=== PATIENT | male | born 1985 | race Caucasian/White ===

== ENCOUNTER 2017-06-02 13:12 | Inpatient (IN) | payer OTHER ==
[~2017-06-02] VITALS: Ht 182.9 cm; Wt 93.7 kg
[2017-06-02] MEDS ORDERED: SODIUM CHLORIDE 0.9% 1000ML 1,000 ML IV STA (13:34)
[2017-06-02 14:04] LABS: BASO % 0.2 %; BASO ABS # 0.02 K/uL (0-0.2); HEMATOCRIT 45.1 % (42-52); HEMOGLOBIN 16.9 g/dL (14.0-18.0); IG# 0.05 K/uL (0.00-0.02); LYMPH % 10.7 %; LYMPH ABS # 1.33 K/uL (1.2-3.4); MEAN CELL VOLUME 82.3 fL (80-100); MEAN CORPUSCULAR HEMOGLOBIN 30.8 pg (25-34); MEAN CORPUSCULAR HGB CONC 37.5 g/dl (32-36); MEAN PLATELET VOLUME 9.6 fL (7.4-10.4); MONO % 9.1 %; MONO ABS # 1.13 K/uL (0.11-0.59); NEUT % 79.6 %; NEUT ABS # 9.95 K/uL (1.4-6.5); PLATELET COUNT 222 K/uL (130-400); RED CELL DISTRIBUTION WIDTH CV 13.7 % (11.5-14.5); RED CELL DISTRIBUTION WIDTH SD 41.3 fL (36.4-46.3); WHITE BLOOD COUNT 12.48 K/uL (4.8-10.8)
[2017-06-02 14:27] LABS: ALBUMIN 3.4 gm/dl (3.4-5.0); CALCIUM 8.7 mg/dl (8.5-10.1); CREATININE 1.07 mg/dl (0.60-1.40); POTASSIUM 3.2 mmol/L (3.5-5.1)
[2017-06-02 14:30] LABS: TOTAL PROTEIN 9.1 gm/dl (6.4-8.2)
[2017-06-02 14:35] LABS: INFLUENZA B ANTIGEN POS for Influ B (NEG)
[2017-06-02] MEDS ORDERED: POTASSIUM CHLORIDE 10 MEQ TABCR PO STA (14:48)
--- NOTE | 2017-06-02 15:05 | DIAGNOSTIC IMAGING REPORT ---
CHEST 2 VIEWS ROUTINE CLINICAL HISTORY: 32 years-old Male presenting with cough. TECHNIQUE: PA and lateral views of the chest were obtained. COMPARISON: None. FINDINGS: Cardiomediastinal silhouette normal. 3 cm mass in the superior segment of the left lower lobe. Bandlike opacities at the left lung base. Small left pleural effusion. Right lung and pleural space clear. Osseous structures normal. Upper abdomen normal. IMPRESSION: 1. 3 cm mass in the superior segment of the left lower lobe. Other evaluation with contrast-enhanced chest CT recommended as this is suspicious and malignancy cannot be excluded. 2. Left basilar atelectasis or scarring with small left pleural effusion. The report will be called/faxed according to standard departmental protocol. Electronically signed by: John Bazan M.D. 06/02/2017 3:04 PM Dictated Date/Time: 06/02/2017 3:02 PM
[2017-06-02] MEDS ORDERED: OPTIRAY 320 IV PRN (15:45)
--- NOTE | 2017-06-02 16:04 | DIAGNOSTIC IMAGING REPORT ---
(CHEST FOR PE) ANGIO WITH CLINICAL HISTORY: 32 years-old Male presenting with ^Nodule seen on x-ray/radiologist recommended CT, positive flu test, coughing. TECHNIQUE: Multidetector CT angiography of the chest was performed after administration of intravenous contrast. 3-D volumetric and/or maximum intensity projection (MIP) images were subsequently reconstructed for review. IV contrast: 98 mL of Optiray 320. A dose lowering technique was used consistent with the principles of ALARA (as low as reasonably achievable). COMPARISON: None. CT DOSE (mGy.cm): The estimated cumulative dose is 400.91 mGy.cm. FINDINGS: Quality Control Assessor topogram: Unremarkable. Pulmonary vasculature: The study is suboptimal for the assessment of the pulmonary vascular tree secondary to timing of the contrast bolus and respiratory motion artifact. Allowing for limited image quality, no central filling defect to suggest pulmonary embolus. Main pulmonary artery is not enlarged. No flattening of the interventricular septum. No intracardiac filling defect. No reflux of contrast into the hepatic veins. Remaining chest: On soft tissue windows, normal thyroid and thoracic inlet. Several prominent though subcentimeter lymph nodes noted in the mediastinum measuring up to 7 mm in the short axis. Additionally, a few prominent hilar lymph nodes noted, left greater than right. Normal aorta. Normal heart size. No pericardial or pleural effusion. Upper abdomen normal. On lung windows, groundglass bubbly appearing 3.5 cm mass in the superior segment of the left lower lobe (series 4 image 172). Additionally, extensive paramediastinal consolidation in the heel basal left lower lobe as well as peribronchovascular and bandlike consolidation at the left lung base. Bronchial wall thickening noted diffusely. Subsegmental bronchial debris most prevalent in the lower lobes. Paraseptal emphysema at the lung apices. Minimal groundglass nodular opacities noted in the superior segment of the right lower lobe (series 4 images 168 and 160). Dependent consolidation in the posterior basal right lower lobe with extensive tree-in-bud opacities dependently. Central airways patent. On bone windows, normal osseous structures. IMPRESSION: 1. 3.5 cm subsolid mass superior segment of the left lower lobe. This morphology is most concerning for a neoplastic process though this would be unlikely in a patient of this age. Alternatively, a potential infectious etiology is possible, especially given the additional findings. This should be followed to complete resolution following treatment for pneumonia. 2. Extensive consolidation in the bilateral lower lobes with tree-in-bud and nodular consolidation most concerning for an atypical infectious etiology or aspiration. 3. Bronchial wall thickening with lower lobe predominant subsegmental bronchial debris. 4. Reactive mediastinal and bilateral hilar lymphadenopathy. Electronically signed by: John Bazan M.D. 06/02/2017 4:03 PM Dictated Date/Time: 06/02/2017 3:55 PM
[2017-06-02] MEDS ORDERED: PIPERACILLIN/TAZOBACTAM 4.5 GM/100ML D5W IV STA (16:37)
[2017-06-02] MEDS ORDERED: LEVAQUIN 750MG / 150ML D5W IV ONE (16:45)
[2017-06-02 17:26] VITALS: O2SAT 97; Ht 182.9 cm; Wt 93.7 kg
[2017-06-02] MEDS ORDERED: ONDANSETRON INJ 2 MG/ML 2 ML VIAL IV PRN (17:30)
[2017-06-02] MEDS ORDERED: ZOLPIDEM TARTRATE 5 MG TAB PO PRN ×2 (17:30)
[2017-06-02] MEDS ORDERED: PIPERACILL/TAZOBAC CONSULT ACTIVE PRN (17:30)
[2017-06-02] MEDS ORDERED: MAGNESIUM HYDROXIDE SUSP 30 ML UDC PO PRN (17:30)
[2017-06-02] MEDS ORDERED: ACETAMINOPHEN 325 MG TAB PO PRN (17:30)
[2017-06-02] MEDS ORDERED: ALUMINUM/MAGNESIUM/SIMETH (MAALOX MAX) 30 ML UDC PO PRN (17:30)
[2017-06-02] MEDS ORDERED: VANCOMYCIN CONSULT ACTIVE PRN (17:30)
--- NOTE | 2017-06-02 17:53 | EMERGENCY ROOM VISIT NOTE ---
History First contact with patient: 13:24 Chief Complaint: FLU LIKE SX Stated Complaint: FLU, SLEEPING ALL TIME, CANT EAT History of Present Illness The patient is a 32 year old male who presents to the Emergency Room with complaints of flulike symptoms. The patient states his symptoms started on Saturday feeling tired and achy. On Saturday he felt worse and also had a deep cough. The patient has not taken his temperature. The patient also admits to some head congestion but denies any sore throat or ear pain. The patient denies any urinary symptoms of frequency, urgency, dysuria hematuria. The patient states that he has been very tired he has not gotten out of bed for several days. He states he has had loose stools over the last 2 days. He states he has been drinking but has not had an appetite. Review of Systems 10 system review was performed and was negative unless stated otherwise history of present illness. Past Medical/Surgical History Medical Problems: (1) Lung mass No significant past medical history Social History Smoking Status: Current Every Day Smoker Marital Status: single Housing Status: lives with roommate Occupation Status: employed Current/Historical Medications No Active Prescriptions or Reported Meds Physical Exam Vital Signs Date Time Temp Pulse Resp B/P (MAP) Pulse Ox O2 Delivery O2 Flow Rate FiO2 06/02/17 17:26 97 Room Air 06/02/17 16:27 86 18 135/84 97 Room Air 06/02/17 15:07 36.7 78 18 131/68 95 Room Air 06/02/17 13:20 36.6 85 20 104/73 98 Room Air Physical Exam PHYSICAL EXAM: Vital Signs were reviewed: Temperature 36.6, blood pressure 104/ 73, pulse 85, respiratory rate 20 reviewed Nurse's notes and agree. Oxygen saturation is 98 % on room air which is normal . GENERAL: 18-year-old male appears in no acute distress. MENTAL STATUS: Alert, oriented, coherent. EARS: Canals clear. TMs good light reflex, no erythema or fluid level noted. NOSE: Nasal mucosa with moderate erythema engorgement. PHARYNX: No erythema, no edema noted. No exudate noted. Airway is adequate. NECK: Supple, non-tender. No lymphadenopathy noted. LUNGS: Diffuse rhonchi noted both lung pereira with only partial clearing with cough. CARDIAC: Regular rate and rhythm without murmur. ABDOMEN: Positive bowel sounds all 4 quadrants. Soft, nontender to palpation without organomegaly or masses. SKIN: No rashes noted. Medical Decision & Procedures ER Provider Diagnostic Interpretation: CHEST 2 VIEWS ROUTINE CLINICAL HISTORY: 32 years-old Male presenting with cough. TECHNIQUE: PA and lateral views of the chest were obtained. COMPARISON: None. FINDINGS: Cardiomediastinal silhouette normal. 3 cm mass in the superior segment of the left lower lobe. Bandlike opacities at the left lung base. Small left pleural effusion. Right lung and pleural space clear. Osseous structures normal. Upper abdomen normal. IMPRESSION: 1. 3 cm mass in the superior segment of the left lower lobe. Other evaluation with contrast-enhanced chest CT recommended as this is suspicious and malignancy cannot be excluded. 2. Left basilar atelectasis or scarring with small left pleural effusion. The report will be called/faxed according to standard departmental protocol. Electronically signed by: John Bazan M.D. 06/02/2017 3:04 PM (CHEST FOR PE) ANGIO WITH CLINICAL HISTORY: 32 years-old Male presenting with ^Nodule seen on x-ray/radiologist recommended CT, positive flu test, coughing. TECHNIQUE: Multidetector CT angiography of the chest was performed after administration of intravenous contrast. 3-D volumetric and/or maximum intensity projection (MIP) images were subsequently reconstructed for review. IV contrast: 98 mL of Optiray 320. A dose lowering technique was used consistent with the principles of ALARA (as low as reasonably achievable). COMPARISON: None. CT DOSE (mGy.cm): The estimated cumulative dose is 400.91 mGy.cm. FINDINGS: Network Technology Instructor topogram: Unremarkable. Pulmonary vasculature: The study is suboptimal for the assessment of the pulmonary vascular tree secondary to timing of the contrast bolus and respiratory motion artifact. Allowing for limited image quality, no central filling defect to suggest pulmonary embolus. Main pulmonary artery is not enlarged. No flattening of the interventricular septum. No intracardiac filling defect. No reflux of contrast into the hepatic veins. Remaining chest: On soft tissue windows, normal thyroid and thoracic inlet. Several prominent though subcentimeter lymph nodes noted in the mediastinum measuring up to 7 mm in the short axis. Additionally, a few prominent hilar lymph nodes noted, left greater than right. Normal aorta. Normal heart size. No pericardial or pleural effusion. Upper abdomen normal. On lung windows, groundglass bubbly appearing 3.5 cm mass in the superior segment of the left lower lobe (series 4 image 172). Additionally, extensive paramediastinal consolidation in the heel basal left lower lobe as well as peribronchovascular and bandlike consolidation at the left lung base. Bronchial wall thickening noted diffusely. Subsegmental bronchial debris most prevalent in the lower lobes. Paraseptal emphysema at the lung apices. Minimal groundglass nodular opacities noted in the superior segment of the right lower lobe (series 4 images 168 and 160). Dependent consolidation in the posterior basal right lower lobe with extensive tree-in-bud opacities dependently. Central airways patent. On bone windows, normal osseous structures. IMPRESSION: 1. 3.5 cm subsolid mass superior segment of the left lower lobe. This morphology is most concerning for a neoplastic process though this would be unlikely in a patient of this age. Alternatively, a potential infectious etiology is possible, especially given the additional findings. This should be followed to complete resolution following treatment for pneumonia. 2. Extensive consolidation in the bilateral lower lobes with tree-in-bud and nodular consolidation most concerning for an atypical infectious etiology or aspiration. 3. Bronchial wall thickening with lower lobe predominant subsegmental bronchial debris. 4. Reactive mediastinal and bilateral hilar lymphadenopathy. Electronically signed by: John Bazan M.D. 06/02/2017 4:03 PM Dictated Date/Time: 06/02/2017 3:55 PM Laboratory Results 06/02/17 13:59 Red Blood Count 5.48, Mean Corpuscular Volume 82.3, Mean Corpuscular Hemoglobin 30.8, Mean Corpuscular Hemoglobin Concent 37.5, Mean Platelet Volume 9.6, Neutrophils (%) (Auto) 79.6, Lymphocytes (%) (Auto) 10.7, Monocytes (%) (Auto) 9.1, Eosinophils (%) (Auto) 0.0, Basophils (%) (Auto) 0.2, Neutrophils # (Auto) 9.95, Lymphocytes # (Auto) 1.33, Monocytes # (Auto) 1.13, Eosinophils # (Auto) 0.00, Basophils # (Auto) 0.02 06/02/17 13:59 Test 06/02/17 13:59 06/02/17 14:00 06/02/17 16:53 06/02/17 17:30 White Blood Count 12.48 K/uL (4.8-10.8) Red Blood Count 5.48 M/uL (4.7-6.1) Hemoglobin 16.9 g/dL (14.0-18.0) Hematocrit 45.1 % (42-52) Mean Corpuscular Volume 82.3 fL (80-100) Mean Corpuscular Hemoglobin 30.8 pg (25-34) Mean Corpuscular Hemoglobin Concent 37.5 g/dl (32-36) Platelet Count 222 K/uL (130-400) Mean Platelet Volume 9.6 fL (7.4-10.4) Neutrophils (%) (Auto) 79.6 % Lymphocytes (%) (Auto) 10.7 % Monocytes (%) (Auto) 9.1 % Eosinophils (%) (Auto) 0.0 % Basophils (%) (Auto) 0.2 % Neutrophils # (Auto) 9.95 K/uL (1.4-6.5) Lymphocytes # (Auto) 1.33 K/uL (1.2-3.4) Monocytes # (Auto) 1.13 K/uL (0.11-0.59) Eosinophils # (Auto) 0.00 K/uL (0-0.5) Basophils # (Auto) 0.02 K/uL (0-0.2) RDW Standard Deviation 41.3 fL (36.4-46.3) RDW Coefficient of Variation 13.7 % (11.5-14.5) Immature Granulocyte % (Auto) 0.4 % Immature Granulocyte # (Auto) 0.05 K/uL (0.00-0.02) Anion Gap 13.0 mmol/L (3-11) Est Creatinine Clear Calc Drug Dose 115.6 ml/min Estimated GFR () 104.4 Estimated GFR (Non- 90.1 BUN/Creatinine Ratio 12.6 (10-20) Calcium Level 8.7 mg/dl (8.5-10.1) Total Bilirubin 0.5 mg/dl (0.2-1) Direct Bilirubin 0.2 mg/dl (0-0.2) Aspartate Amino Transf (AST/SGOT) 24 U/L (15-37) Alanine Aminotransferase (ALT/SGPT) 27 U/L (12-78) Alkaline Phosphatase 127 U/L (45-117) Total Protein 9.1 gm/dl (6.4-8.2) Albumin 3.4 gm/dl (3.4-5.0) Lipase 256 U/L (73-393) Influenza Type A Antigen Neg for Influ A (NEG) Influenza Type B Antigen POS for Influ B (NEG) Bedside Lactic Acid Venous 0.87 mmol/L (0.90-1.70) Medications Administered Medications (Trade) Dose Ordered Sig/Alcides Route Start Time Stop Time Status Last Admin Dose Admin Sodium Chloride 1,000 ml @ 999 mls/hr Q1H1M STAT IV 06/02/17 13:34 06/02/17 14:34 DC 06/02/17 14:00 999 MLS/HR Potassium Chloride (Klor-Con M10) 10 meq NOW STAT PO 06/02/17 14:48 06/02/17 14:49 DC 06/02/17 15:06 10 MEQ Piperacillin Sod/ Tazobactam Sod (Zosyn Iv) 4.5 gm NOW STAT IV 06/02/17 16:37 06/02/17 16:39 DC 06/02/17 16:50 4.5 GM Levofloxacin (Levaquin / D5W) 750 mg NOW ONCE IV 06/02/17 16:45 06/02/17 16:46 DC 06/02/17 17:06 750 MG ED Course The patient was evaluated. Patient's EMR medication list were reviewed. IV access was obtained. The patient was given 1 L normal saline wide open. CBC and differential, renal profile was ordered. Observe reviewed. The patient's white count was elevated at 12,000, potassium was slightly low at 3.2 otherwise labs are unremarkable. Rapid influenza was negative for influenza A but positive for influenza B.. Chest x-ray was ordered interpreted by the radiologist and myself as above with abnormal finding in the left lower lobe. A CT was recommended. A CT with contrast of the chest was ordered.. The patient was given K Dur 10 mEq while in the ER. CT of the chest was interpreted by the radiologist as above with an extensive infectious type process noted in both lung pereira. Please see above report for details. The patient's case was discussed with Dr. Frazier who individually evaluated the patient and agree with treatment plan. Blood cultures were ordered prior to giving the patient antibiotics. The patient was given Zosyn 4.5 g IV and Levaquin 750 mg IV. Hospitalist was consulted for admission. The patient was placed in negative pressure isolation room. Medical Decision Differential diagnosis include influenza, viral URI, pneumonia. Due to the patient's extensive disease process within the lungs the patient will be admitted for further evaluation and treatment. [place] Drug Monitoring [place] Search Results: patient reviewed within database Medication Reconcilliation Current Medication List: was personally reviewed by me Blood Pressure Screening Patient's blood pressure: Normal blood pressure Impression Primary Impression: Pneumonia Additional Impressions: Influenza B Hypokalemia Departure Information Dispostion Being Evaluated By Hospitalist Condition GOOD Prescriptions No Active Prescriptions or Reported Meds Referrals No Doctor, Assigned (PCP) Patient Instructions My [facility] Problem Qualifiers Primary Impression: Pneumonia Pneumonia type: due to unspecified organism Laterality: bilateral Lung location: lower lobe of lung Qualified Codes: J18.1 - Lobar pneumonia, unspecified organism
--- NOTE | 2017-06-02 18:27 | History and Physical ---
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 5 days ago he developed some cough, chills and fever. His cough was productive greenish sputum. Yesterday he developed multiple times of diarrhea no blood in stool no nausea or vomiting. His mom came to check on him and he looked really sick so she brought him to the hospital. In the hospital he was found to test positive for influenza B. A CT scan was done to his chest as his chest x-ray was abnormal. Chest CT showed 3.5 cm mass in the left lower lobe close to the supraspinal area. Also showed multiple bibasal lung nodules. Patient denies any drug abuse, he is not some bills in his 20s but has not been that long time. He never traveled outside [facility] but he went to [facility], [place] and [facility]. No history of hiking or hunting but he went camping almost every summer in high school. Past Medical/Surgical History Medical Problems: (1) Lung mass Social History Smoking Status: Current Every Day Smoker Marital Status: single Occupational Status: employed Allergies Coded Allergies: No Known Allergies (Unverified , 06/02/17) Home Medications No Active Prescriptions or Reported Meds Review of Systems Review of system Constitutional: Positive for fever/chills/weakness and fatigue Eyes: no blurring of vision / no eye pain / no discharge / no redness ENT: no hearing loss / no epistaxis /no swallowing problems Respiratory: Shortness of breath and productive cough with greenish mucus Cardiovascular: no Chest pain / no lower extremity edema / no palpitation Abdomen: no pain / no nausea / no vomiting / no constipation Musculoskeletal: no joint pain / no muscle pain / no joint swelling Genitourinary: no dysuria / no incontinence / no urinary retention Neurologic: no focal weakness / no numbness/tingling / no ataxia Psychiatric: no depression symptoms / no anxiety / no insomnia Endocrine: no excessive thirst / no excessive urination Hematologic: no abnormal bleeding / no bruising / no LN swelling Skin: No rash / no pallor Physical Exam Vital Signs Date Time Temp Pulse Resp B/P (MAP) Pulse Ox O2 Delivery O2 Flow Rate FiO2 06/02/17 17:26 97 Room Air 06/02/17 16:27 86 18 135/84 97 Room Air 06/02/17 15:07 36.7 78 18 131/68 95 Room Air 06/02/17 13:20 36.6 85 20 104/73 98 Room Air Physical examination General patient appears to be in mild distress HEENT: Atraumatic , normocephalic /no jaundice /no pallor /anicteric /no dry mucous membrane /normal external ear inspection Neck: Supple /no swelling /central trach Heart: S1/S2 normal/regular rate and rhythm/no gallop /no rub /no murmur Lungs: Decreased air entry bilaterally, scattered rhonchi Abdomen: Soft/nontender/no guarding/no rebound/no organomegaly/no pulsatile mass Musculoskeletal: No swelling/no edema/no tenderness/normal range of motion Neuro exam: Awake alert oriented 3/cranial nerves II through XII appear to be intact/sensation intact/moves all extremities/no abnormal movements Psychiatric evaluation: No depressed mood/normal affect Skin: No rash on exposed skin area/no erythema Extremity: Normal pulse/no pitting edema/no clubbing or cyanosis Endocrine/lymphatic: No obvious lymphadenopathy /no lymphedema Diagnostics Laboratory Results Results Past 24 Hours Test 06/02/17 13:59 06/02/17 14:00 06/02/17 16:53 06/02/17 17:30 Range/Units White Blood Count 12.48 4.8-10.8 K/uL Red Blood Count 5.48 4.7-6.1 M/uL Hemoglobin 16.9 14.0-18.0 g/dL Hematocrit 45.1 42-52 % Mean Corpuscular Volume 82.3 80-100 fL Mean Corpuscular Hemoglobin 30.8 25-34 pg Mean Corpuscular Hemoglobin Concent 37.5 32-36 g/dl Platelet Count 222 130-400 K/uL Mean Platelet Volume 9.6 7.4-10.4 fL Neutrophils (%) (Auto) 79.6 % Lymphocytes (%) (Auto) 10.7 % Monocytes (%) (Auto) 9.1 % Eosinophils (%) (Auto) 0.0 % Basophils (%) (Auto) 0.2 % Neutrophils # (Auto) 9.95 1.4-6.5 K/uL Lymphocytes # (Auto) 1.33 1.2-3.4 K/uL Monocytes # (Auto) 1.13 0.11-0.59 K/uL Eosinophils # (Auto) 0.00 0-0.5 K/uL Basophils # (Auto) 0.02 0-0.2 K/uL RDW Standard Deviation 41.3 36.4-46.3 fL RDW Coefficient of Variation 13.7 11.5-14.5 % Immature Granulocyte % (Auto) 0.4 % Immature Granulocyte # (Auto) 0.05 0.00-0.02 K/uL Sodium Level 130 136-145 mmol/L Potassium Level 3.2 3.5-5.1 mmol/L Chloride Level 97 98-107 mmol/L Carbon Dioxide Level 20 21-32 mmol/L Anion Gap 13.0 3-11 mmol/L Blood Urea Nitrogen 14 7-18 mg/dl Creatinine 1.07 0.60-1.40 mg/dl Est Creatinine Clear Calc Drug Dose 115.6 ml/min Estimated GFR () 104.4 Estimated GFR (Non- 90.1 BUN/Creatinine Ratio 12.6 10-20 Random Glucose 105 70-99 mg/dl Calcium Level 8.7 8.5-10.1 mg/dl Total Bilirubin 0.5 0.2-1 mg/dl Direct Bilirubin 0.2 0-0.2 mg/dl Aspartate Amino Transf (AST/SGOT) 24 15-37 U/L Alanine Aminotransferase (ALT/SGPT) 27 12-78 U/L Alkaline Phosphatase 127 45-117 U/L Total Protein 9.1 6.4-8.2 gm/dl Albumin 3.4 3.4-5.0 gm/dl Lipase 256 73-393 U/L Influenza Type A Antigen Neg for Influ A NEG Influenza Type B Antigen POS for Influ B NEG Bedside Lactic Acid Venous 0.87 0.90-1.70 mmol/L Microbiology Results 06/02/17 Fungal Smear, Ordered Pending 06/02/17 Fungal Culture, Ordered Pending 06/02/17 Blood Culture, Received Pending 06/02/17 Blood Culture, Received Pending Diagnostic Radiology CT chest: IMPRESSION: 1. 3.5 cm subsolid mass superior segment of the left lower lobe. This morphology is most concerning for a neoplastic process though this would be unlikely in a patient of this age. Alternatively, a potential infectious etiology is possible, especially given the additional findings. This should be followed to complete resolution following treatment for pneumonia. 2. Extensive consolidation in the bilateral lower lobes with tree-in-bud and nodular consolidation most concerning for an atypical infectious etiology or aspiration. 3. Bronchial wall thickening with lower lobe predominant subsegmental bronchial debris. 4. Reactive mediastinal and bilateral hilar lymphadenopathy Impression Assessment and Plan 32-year-old man smoker with history of frequent camping, travel to [facility], [facility] and [place] presented to the hospital with shortness of breath/productive cough greenish mucus, tested positive for influenza B and was found to have 3.5 cm lung mass and left lower lobe paraspinal area and multiple small lung nodules especially bibasal areas. Assessment Influenza B virus upper respiratory tract infection 3.5 cm lung mass with multiple lung nodules Tobacco abuse Elevated total protein level likely dehydration Mild hypokalemia Plan Admit patient to telemetry Oxygen supplement as per protocol Blood culture/sputum culture Although tuberculosis is low in the last but as a precaution will do AFB and sputum and blood cultures, airborne isolation Ordered fungitel, B galactomannan and fungal sputum Consult pharmaceutical engineer for possible bronchoscopy Consult cardiothoracic surgeon Dr. Rodriguez for possible biopsy Consult infectious diseases Dr. Balderas Urine legionella antigen Initiate broad-spectrum antibiotics; Zosyn/Vanco/azithromycin/Tamiflu Start patient on lactobacillus to prevent C. difficile IV fluid hydration Repeat CMP in the morning with focus on total protein, if stays elevated after dehydration it can be concerning for HIV or other pathologic malignancy HIV vertebral consent was obtained, patient understands that he should call or come in person in 2 weeks to get HIV results, patient understands that he will not be called with the results due to confidentiality, patient acknowledged that he understands and will follow-up on the results under his own responsibilities 2D echo rule out infective endocarditis Monitor labs in a.m. Bronchodilators Monitor oxygen saturation DVT prophylaxis/heparin subcutaneous Advanced Directives Existing Living Will: No Existing Power of Medical Records Tech: No Resuscitation Status VTE Prophylaxis Will order VTE Prophylaxis: Yes
[2017-06-02 19:00] VITALS: BP 159/81; PULSE 85; TEMP 37; O2SAT 95
[2017-06-02 19:31] VITALS: O2SAT 95
[2017-06-02] MEDS ORDERED: POLYETHYLENE (MIRALAX) 17 GM PACK PO PRN (19:45)
[2017-06-02] MEDS ORDERED: POTASSIUM CHLORIDE PWD 20 MEQ PACK PO ONE (19:45)
[2017-06-02] MEDS ORDERED: SODIUM CHLORIDE 0.9% 1000ML 1,000 ML IV SCH (19:45)
[2017-06-02] MEDS ORDERED: NURSING VERBAL MED ORDER ONE (20:15)
[2017-06-02] MEDS: ONDANSETRON 4MG OD TAB SL SCH (20:17)
[2017-06-02] MEDS: OSELTAMIVIR PHOSPHATE 75 MG CAP PO SCH (20:17)
[2017-06-02] MEDS: NSS + 20MEQ KCL 1000ML 1,000 ML IV SCH (20:18)
[2017-06-02] MEDS: LACTOBACILLUS ACIDOPHILUS (FLORANEX) TAB PO SCH (20:20)
[2017-06-02] MEDS ORDERED: VANCOMYCIN IV 2,500 MG in SODIUM CHLORIDE 0.9% 500ML 500 ML IV ONE (20:30)
[2017-06-02 20:40] LABS: INR 1.2 (0.9-1.1); PTT PATIENT 32.9 SECONDS (21.0-31.0)
--- NOTE | 2017-06-02 20:49 | Pharmacy Progress Note ---
Pharmacy Abx Initial Consult Date of Service Jun 02, 2017. Pharmacy Dosing Scope Date of Consult: 06/02/17 Consultation requested by: Dr. Wei Pharmacy is consulted to initiate Vancomycin/Zosyn IV dosing therapy, order appropriate labs and adjust drug dose/frequency. Subjective The patient is a 32 year old male admitted on Jun 02, 2017 at 17:47. Objective Height (Feet): 6 Height (Inches): 0.00 Weight (Kilograms): 93.700 Vital Signs (Past 12Hrs) Vital Signs Past 12 Hours Date Time Temp Pulse Resp B/P (MAP) Pulse Ox O2 Delivery O2 Flow Rate FiO2 06/02/17 19:31 95 Room Air 06/02/17 19:00 37.0 85 20 159/81 (107) 95 Room Air 06/02/17 18:30 87 18 113/55 97 06/02/17 17:26 97 Room Air 06/02/17 16:27 86 18 135/84 97 Room Air 06/02/17 15:07 36.7 78 18 131/68 95 Room Air 06/02/17 13:20 36.6 85 20 104/73 98 Room Air Lab Results (24Hrs) Laboratory Tests (24 Hours) Test 06/02/17 13:59 06/02/17 14:50 White Blood Count 12.48 K/uL (4.8-10.8) H Red Blood Count 5.48 M/uL (4.7-6.1) Hemoglobin 16.9 g/dL (14.0-18.0) Hematocrit 45.1 % (42-52) Mean Corpuscular Volume 82.3 fL (80-100) Mean Corpuscular Hemoglobin 30.8 pg (25-34) Mean Corpuscular Hemoglobin Concent 37.5 g/dl (32-36) H Platelet Count 222 K/uL (130-400) Mean Platelet Volume 9.6 fL (7.4-10.4) Neutrophils (%) (Auto) 79.6 % Lymphocytes (%) (Auto) 10.7 % Monocytes (%) (Auto) 9.1 % Eosinophils (%) (Auto) 0.0 % Basophils (%) (Auto) 0.2 % Neutrophils # (Auto) 9.95 K/uL (1.4-6.5) H Lymphocytes # (Auto) 1.33 K/uL (1.2-3.4) Monocytes # (Auto) 1.13 K/uL (0.11-0.59) H Eosinophils # (Auto) 0.00 K/uL (0-0.5) Basophils # (Auto) 0.02 K/uL (0-0.2) C-Reactive Protein 21.50 mg/dl (0-0.29) H Erythrocyte Sedimentation Rate > 90 mm/hr (0-14) H Procalcitonin 0.32 ng/ml (0-0.5) Micro Results Date/Time Source Procedure Growth Status 06/02/17 20:22 Blood Blood Culture Pending Received 06/02/17 20:19 Blood Blood Culture Pending Received 06/02/17 19:09 Blood Fungal Smear Pending Received 06/02/17 19:09 Blood Fungal Culture Pending Received 06/02/17 16:51 Blood Blood Culture Pending Received 06/02/17 16:49 Blood Blood Culture Pending Received Assessment & Plan Assessment 32 year old male with 3.5 cm Pulmonary mass and possible atypical pulmonary infectious process. Patient also positive for Influenza B Plan Vancomycin/Zosyn for possible atypical pulmonary infectious process Vancomycin IV * Loading dose: Vancomycin 2750 mg (27 mg/kg) * Maintenance dose: 1750 mg IV (18.7 mg/kg) every 10 hours * Goal trough level for pulmonary infection: 15 to 20 mcg/mL * Trough level ordered for 06/04/17 before the 1400 hours dose Piperacillin/tazobactam * 4.5 g bolus administered over 30 minutes, then 3.375 g IV extended infusion every 8 hours for CrCl greater than 20 mL/min Pharmacy will continue to follow and will adjust dose/frequency as necessary. Thank you.
[2017-06-02] MEDS: ENOXAPARIN 40 MG/0.4 ML SYR SQ SCH (20:55)
[2017-06-02 22:45] VITALS: BP 143/84; PULSE 81; TEMP 37.5; O2SAT 95
[2017-06-02] MEDS: PIPERACILL/TAZOBAC IV 3.375 GM in DEXTROSE 5% 100ML 100 ML IV SCH (23:42)
[2017-06-03 00:26] VITALS: BP 123/74; TEMP 37.4
[2017-06-03 01:28] VITALS: TEMP 37.3
[2017-06-03] MEDS: ONDANSETRON 4MG OD TAB SL SCH ×5 (02:05→20:00)
[2017-06-03 06:43] LABS: BASO % 0.2 %; BASO ABS # 0.02 K/uL (0-0.2); EOS % 0.1 %; EOS ABS # 0.01 K/uL (0-0.5); HEMATOCRIT 43.2 % (42-52); HEMOGLOBIN 15.6 g/dL (14.0-18.0); IG# 0.02 K/uL (0.00-0.02); LYMPH % 15.7 %; LYMPH ABS # 1.39 K/uL (1.2-3.4); MEAN CORPUSCULAR HEMOGLOBIN 29.6 pg (25-34); MEAN CORPUSCULAR HGB CONC 36.1 g/dl (32-36); MEAN PLATELET VOLUME 9.6 fL (7.4-10.4); MONO % 5.5 %; MONO ABS # 0.49 K/uL (0.11-0.59); NEUT % 78.3 %; NEUT ABS # 6.94 K/uL (1.4-6.5); PLATELET COUNT 200 K/uL (130-400); RED CELL DISTRIBUTION WIDTH CV 13.8 % (11.5-14.5); RED CELL DISTRIBUTION WIDTH SD 41.3 fL (36.4-46.3); WHITE BLOOD COUNT 8.87 K/uL (4.8-10.8)
[2017-06-03 07:11] LABS: ALBUMIN 2.9 gm/dl (3.4-5.0); CALCIUM 8.6 mg/dl (8.5-10.1); CREATININE 0.9 mg/dl (0.60-1.40); POTASSIUM 3.2 mmol/L (3.5-5.1)
[2017-06-03 07:15] LABS: TOTAL PROTEIN 7.9 gm/dl (6.4-8.2)
[2017-06-03 07:34] VITALS: BP 127/78; PULSE 85; TEMP 36.6; O2SAT 94
[2017-06-03 07:48] LABS: HEMOGLOBIN A1C 5.8 % (4.5-5.6)
[2017-06-03] MEDS: VANCOMYCIN IV 1,750 MG in SODIUM CHLORIDE 0.9% 500ML 500 ML IV SCH ×2 (08:22→18:30)
[2017-06-03] MEDS: PIPERACILL/TAZOBAC IV 3.375 GM in DEXTROSE 5% 100ML 100 ML IV SCH ×3 (08:22→23:51)
[2017-06-03] MEDS: NSS + 20MEQ KCL 1000ML 1,000 ML IV SCH ×2 (08:23→22:05)
[2017-06-03] MEDS: LACTOBACILLUS ACIDOPHILUS (FLORANEX) TAB PO SCH ×4 (08:23→18:22)
[2017-06-03] MEDS: OSELTAMIVIR PHOSPHATE 75 MG CAP PO SCH ×3 (08:24→20:35)
[2017-06-03] MEDS: AZITHROMYCIN 250 MG TAB PO SCH ×2 (08:24→10:06)
[2017-06-03] MEDS ORDERED: FAMOTIDINE IV INJ 20 MG in SYRINGE 3 ML IV SCH (09:00)
[2017-06-03] MEDS ORDERED: FAMOTIDINE IV INJ 20 MG in DEXTROSE 5% 100ML 100 ML IV SCH (09:00)
--- NOTE | 2017-06-03 09:33 | Hospitalist Progress Note ---
Hospitalist Progress Note Date of Service Jun 03, 2017. (Bianca Galindo PA-C) Subjective Pt evaluation today including: conversation w/ patient, conversation w/ family , physical exam, chart review, lab review, review of studies Pain: None PO Intake: Good Voiding: no voiding problems The patient was seen and examined this morning. Pt reports doing much better today compared to yesterday. The patient denies any shortness of breath and has a very minimal cough with some white sputum production. He denies being feverish or having chills overnight. Pt feels he is tolerating oral intake and fluids without difficulty. This is the first that he has eaten in the past 5 days. + BM. No issues with urination. Discussion was held with the patient and his mother, who is present at bedside. Patient was encouraged to stop smoking, which he has completely agreeable to at this point. We reviewed CT imaging at bedside, and patient was shown areas of early emphysema, along with the lung mass with lymphadenopathy. The patient admits to smoking marijuana as well. He currently lives with his brother who also smokes tobacco/cigarettes inside the house. Additional Comments: Constitutional: No fever, sweats or chills Eyes: No diplopia, no worsening or blurred vision ENT: normal hearing, no trouble swallowing Respiratory: See HPI Cardiovascular: No chest pain, tightness or palpitations Abdomen: No pain, nausea, vomiting, diarrhea or constipation Musculoskeletal: No joint pain, calf pain, swelling Neurologic: No weakness, numbness/tingling, or balance problems Psychiatric: No anxiety or depression Skin: No rash or itch (Bianca Galindo PA-C) Objective Vital Signs Date Time Temp Pulse Resp B/P (MAP) Pulse Ox O2 Delivery O2 Flow Rate FiO2 06/03/17 07:34 36.6 85 17 127/78 (94) 94 Room Air 06/03/17 01:28 37.3 06/03/17 00:26 37.4 123/74 (90) 06/02/17 23:45 Room Air 06/02/17 22:45 37.5 81 18 143/84 (103) 95 Room Air 06/02/17 19:31 95 Room Air 06/02/17 19:00 37.0 85 20 159/81 (107) 95 Room Air 06/02/17 18:30 87 18 113/55 97 06/02/17 17:26 97 Room Air 06/02/17 16:27 86 18 135/84 97 Room Air 06/02/17 15:07 36.7 78 18 131/68 95 Room Air 06/02/17 13:20 36.6 85 20 104/73 98 Room Air (Bianca Galindo PA-C) Physical Exam Notes: General: awake, alert, no apparent distress, + slightly anxious Head: Normocephalic, atraumatic ENT: PERRL, EOMI, no pharyngeal exudate, mucous membranes moist Chest: On room air, faintly coarse breath sounds throughout, no wheeze or rales Cardiac: Regular rate and rhythm, no murmur, no JVD, normal peripheral pulses, good capillary refill Abdominal: NABS x 4 quadrants, soft, nontender to palpation, no rebound, guarding or tenderness Extremities: Normal inspection, no peripheral edema or erythema, calfs nontender to palpation Psych: Normal mood and affect Neuro: AAO x 3, strength intact bilaterally and related 5/5, no motor deficits, speech is clear, no peripheral sensory deficits (Bianca Galindo, JOAQUIN-C) Laboratory Results Last 24 Hours Test 06/02/17 13:59 06/02/17 14:00 06/02/17 14:50 06/02/17 16:53 White Blood Count 12.48 K/uL Red Blood Count 5.48 M/uL Hemoglobin 16.9 g/dL Hematocrit 45.1 % Mean Corpuscular Volume 82.3 fL Mean Corpuscular Hemoglobin 30.8 pg Mean Corpuscular Hemoglobin Concent 37.5 g/dl Platelet Count 222 K/uL Mean Platelet Volume 9.6 fL Neutrophils (%) (Auto) 79.6 % Lymphocytes (%) (Auto) 10.7 % Monocytes (%) (Auto) 9.1 % Eosinophils (%) (Auto) 0.0 % Basophils (%) (Auto) 0.2 % Neutrophils # (Auto) 9.95 K/uL Lymphocytes # (Auto) 1.33 K/uL Monocytes # (Auto) 1.13 K/uL Eosinophils # (Auto) 0.00 K/uL Basophils # (Auto) 0.02 K/uL RDW Standard Deviation 41.3 fL RDW Coefficient of Variation 13.7 % Immature Granulocyte % (Auto) 0.4 % Immature Granulocyte # (Auto) 0.05 K/uL Sodium Level 130 mmol/L Potassium Level 3.2 mmol/L Chloride Level 97 mmol/L Carbon Dioxide Level 20 mmol/L Anion Gap 13.0 mmol/L Blood Urea Nitrogen 14 mg/dl Creatinine 1.07 mg/dl Est Creatinine Clear Calc Drug Dose 115.6 ml/min Estimated GFR () 104.4 Estimated GFR (Non- 90.1 BUN/Creatinine Ratio 12.6 Random Glucose 105 mg/dl Calcium Level 8.7 mg/dl Total Bilirubin 0.5 mg/dl Direct Bilirubin 0.2 mg/dl Aspartate Amino Transf (AST/SGOT) 24 U/L Alanine Aminotransferase (ALT/SGPT) 27 U/L Alkaline Phosphatase 127 U/L Total Protein 9.1 gm/dl Albumin 3.4 gm/dl Lipase 256 U/L Influenza Type A Antigen Neg for Influ A Influenza Type B Antigen POS for Influ B Erythrocyte Sedimentation Rate > 90 mm/hr C-Reactive Protein 21.50 mg/dl Procalcitonin 0.32 ng/ml Bedside Lactic Acid Venous 0.87 mmol/L Test 06/02/17 19:09 06/02/17 20:19 06/03/17 03:20 06/03/17 03:50 HIV (1&2) Ab and P24 Ag, 4th Gener NEG Prothrombin Time 12.2 SECONDS Prothromb Time International Ratio 1.2 Activated Partial Thromboplast Time 32.9 SECONDS Partial Thromboplastin Ratio 1.3 Stool Occult Blood NEGATIVE Test 06/03/17 06:30 White Blood Count 8.87 K/uL Red Blood Count 5.27 M/uL Hemoglobin 15.6 g/dL Hematocrit 43.2 % Mean Corpuscular Volume 82.0 fL Mean Corpuscular Hemoglobin 29.6 pg Mean Corpuscular Hemoglobin Concent 36.1 g/dl Platelet Count 200 K/uL Mean Platelet Volume 9.6 fL Neutrophils (%) (Auto) 78.3 % Lymphocytes (%) (Auto) 15.7 % Monocytes (%) (Auto) 5.5 % Eosinophils (%) (Auto) 0.1 % Basophils (%) (Auto) 0.2 % Neutrophils # (Auto) 6.94 K/uL Lymphocytes # (Auto) 1.39 K/uL Monocytes # (Auto) 0.49 K/uL Eosinophils # (Auto) 0.01 K/uL Basophils # (Auto) 0.02 K/uL RDW Standard Deviation 41.3 fL RDW Coefficient of Variation 13.8 % Immature Granulocyte % (Auto) 0.2 % Immature Granulocyte # (Auto) 0.02 K/uL Sodium Level 132 mmol/L Potassium Level 3.2 mmol/L Chloride Level 103 mmol/L Carbon Dioxide Level 19 mmol/L Anion Gap 10.0 mmol/L Blood Urea Nitrogen 11 mg/dl Creatinine 0.90 mg/dl Est Creatinine Clear Calc Drug Dose 137.5 ml/min Estimated GFR () 128.7 Estimated GFR (Non- 111.0 BUN/Creatinine Ratio 11.8 Random Glucose 95 mg/dl Estimated Average Glucose 120 mg/dl Hemoglobin A1c 5.8 % Lactic Acid Level 0.9 mmol/L Calcium Level 8.6 mg/dl Magnesium Level 2.4 mg/dl Total Bilirubin 0.5 mg/dl Aspartate Amino Transf (AST/SGOT) 23 U/L Alanine Aminotransferase (ALT/SGPT) 27 U/L Alkaline Phosphatase 108 U/L Total Protein 7.9 gm/dl Albumin 2.9 gm/dl Globulin 5.0 gm/dl Albumin/Globulin Ratio 0.6 (Bianca Galindo, PAWolfgang) Assessment and Plan This is a 32-year-old male with PMH chronic tobacco use, marijuana use found to have Influenza B, with subsequent LLL lung mass measuring ~3.5 cm with hilar lymphadenopathy. Influenza B virus upper respiratory tract infection 3.5 cm lung mass with multiple lung nodules Tobacco abuse/ marijuana use Concern for pathologic malignancy - CT reviewed per chart - O2 protocol, bronchodilators, nebs for supportive care along with tamiflu (sx started 5 days ago, unlikely that that would truely decrease sx improvement at this point) - azithromycin, vanc and zosyn started on 06/02. - Follow Blood culture/sputum culture - in process - Although tuberculosis is low in the last but as a precaution will do AFB and sputum and blood cultures, airborne isolation until ruled out - Ordered fungitel, B galactomannan and fungal sputum - Consult barrel charrer helper- Dr. Thomas:. No need at this time for EBUS - consider bronchoscopy for secretion removal and evaluation unless he is dramatically improved clinically. - Consult cardiothoracic surgeon Dr. Wolff for possible biopsy - agrees with holding off on bx for now. - Infectious disease on board - await AFB. continue abx as above. - Urine legionella antigen - Start patient on lactobacillus to prevent C. difficile - Follow HIV results - 2D echo: today - Follow CMP: with focus on total protein, if stays elevated after dehydration it can be concerning for HIV or other pathologic malignancy - Advised cessation of smoking as well as cessation of marijuana. - will further discuss needs for nicotine weaning at time of discharge. Elevated total protein level likely dehydration Mild hypokalemia- replaced, follow am labs DVT ppx: heparin subq CODE STATUS: FULL CODE Dispostion: From home, lives with brother. Possible dc in 1-2 days pending clinical response. (Bianca Galindo, LIZZ) Supervising Note Dr. Love I performed a history and physical examination on the patient. I reviewed above note and agree with it. I discussed plan with APC and patient. During my face to face encounter with the patient, I answered all of the patient's questions. Patient reports feeling significantly better, but not back at baseline. Will continue current management. (Aamir Love M.D.)
--- NOTE | 2017-06-03 09:55 | ECHOCARDIOGRAM REPORT ---
*NOTICE TO RECEIVING LIBERTARIAN AGENCY This information is strictly Confidential and protected under [place] law. [place] law prohibits you from making any further disclosure of this information unless further disclosure is expressly permitted by the written consent of the person to whom it pertains or is authorized by law. A general authorization for the release of medical or other information is not sufficient for this purpose. Hospital accepts no responsibility if the information is made available to any other person, INCLUDING THE PATIENT. Interpretation Summary * Name: VIOLETTA HAYES Study Date: 06/03/2017 07:04 AM BP: 123/74 mmHg * Patient Location: .[employer]\S\W358\S\1 HR: 72 * : 1985 (M/d/yyyy) Gender: Male Height: 72 in * Age: 32 yrs Ethnicity: CA Weight: 206 lb * Ordering Physician: Moe Mendoza * Referring Physician: Self, Referred * Performed By: Aby Cortez RCS * * Reason For Study: ENDOCARDITIS / LUNG MASS * BSA: 2.2 m2 * There is no evidence of a mass or vegetation. This does not rule out endocarditis. * -- Conclusions -- * Left ventricular systolic function is normal. * Normal diastolic function * Right ventricular systolic pressure is normal. Procedure Details * A complete two-dimensional transthoracic echocardiogram was performed (2D, M-mode, Doppler and color flow Doppler). Left Ventricle * The left ventricle is normal in size. * There is normal left ventricular wall thickness. * Left ventricular systolic function is normal. * Ejection Fraction = 50-55%. * Normal diastolic function * The left ventricular wall motion is normal. Right Ventricle * The right ventricle is normal in size and function. Atria * The left atrial size is normal. * Right atrial size is normal. Mitral Valve * The mitral valve anatomy is normal. * Significant mitral regurgitation is absent. Tricuspid Valve * The tricuspid valve is not well visualized, but is grossly normal. * There is trace tricuspid regurgitation. * Right ventricular systolic pressure is normal. Aortic Valve * The aortic valve is normal in structure and function. * No hemodynamically significant valvular aortic stenosis. * There is no significant aortic regurgitation. Pulmonic Valve * The pulmonic valve is not well visualized. Pericardium/Pleural * There is no pericardial effusion. Great Vessels * Normal inferior vena cava diameter and respiratory variation suggests normal central venous pressure. MMode 2D Measurements and Calculations IVSd 0.99 cm IVSs 1.4 cm LVIDd 5.0 cm LVIDs 3.7 cm LVPWd 1.0 cm LVPWs 1.3 cm IVS/LVPW 0.95 FS 26.6 % EDV(Teich) 118.9 ml ESV(Teich) 57.3 ml EF(Teich) 51.8 % EDV(cubed) 125.9 ml ESV(cubed) 49.8 ml EF(cubed) 60.5 % % IVS thick 37.0 % % LVPW thick 27.1 % LV mass(C)d 185.6 grams LV mass(C)dI 86.1 grams/m\S\2 LV mass(C)s 172.1 grams LV mass(C)sI 79.8 grams/m\S\2 SV(Teich) 61.6 ml SI(Teich) 28.5 ml/m\S\2 SV(cubed) 76.1 ml SI(cubed) 35.3 ml/m\S\2 LA dimension 3.8 cm LVOT diam 2.0 cm LVOT area 3.3 cm\S\2 LVAd ap4 37.2 cm\S\2 LVLd ap4 9.3 cm EDV(MOD-sp4) 123.0 ml EDV(sp4-el) 126.5 ml LVAs ap4 25.1 cm\S\2 LVLs ap4 7.8 cm ESV(MOD-sp4) 67.8 ml ESV(sp4-el) 68.6 ml EF(MOD-sp4) 44.8 % EF(sp4-el) 45.8 % LVAd ap2 32.0 cm\S\2 LVLd ap2 9.0 cm EDV(MOD-sp2) 91.6 ml EDV(sp2-el) 96.2 ml LVAs ap2 23.1 cm\S\2 LVLs ap2 7.9 cm ESV(MOD-sp2) 55.7 ml ESV(sp2-el) 57.8 ml EF(MOD-sp2) 39.1 % EF(sp2-el) 40.0 % LVLd %diff -2.99 % EDV(MOD-bp) 105.4 ml LVLs %diff 0.95 % ESV(MOD-bp) 62.0 ml EF(MOD-bp) 41.2 % SV(MOD-sp4) 55.1 ml SI(MOD-sp4) 25.6 ml/m\S\2 SV(MOD-sp2) 35.9 ml SI(MOD-sp2) 16.6 ml/m\S\2 SV(MOD-bp) 43.4 ml SI(MOD-bp) 20.1 ml/m\S\2 SV(sp4-el) 57.9 ml SI(sp4-el) 26.8 ml/m\S\2 SV(sp2-el) 38.5 ml SI(sp2-el) 17.8 ml/m\S\2 Doppler Measurements and Calculations MV E max jo ann 82.5 cm/sec MV A max jo ann 57.2 cm/sec MV E/A 1.4 MV P1/2t max jo ann 97.5 cm/sec MV P1/2t 79.3 msec MVA(P1/2t) 2.8 cm\S\2 MV dec slope 359.9 cm/sec\S\2 MV dec time 0.24 sec Ao V2 max 142.5 cm/sec Ao max PG 8.1 mmHg Ao max PG (full) 2.5 mmHg BUDDY(V,A) 2.7 cm\S\2 BUDDY(V,D) 2.7 cm\S\2 LV V1 max PG 5.6 mmHg LV V1 max 118.2 cm/sec PA V2 max 97.5 cm/sec PA max PG 3.8 mmHg TR max jo ann 228.6 cm/sec
--- NOTE | 2017-06-03 11:13 | Progress Note ---
Progress Note Date of Service Jun 03, 2017. Progress Note ID Consult Dictated #[id number] A/P: 1. Flu 2. LLL lung nodule -continue tamiflu, continue droplet precautions -follow cultures, can continue abx for now pending sputum culture -Doubt tb, if smear neagtive, can stop airborne precautions -Await surgery eval regarding biospy vs re image after infection treated -thank you
--- NOTE | 2017-06-03 11:48 | PULMONARY CONSULTATION ---
DATE OF CONSULTATION: 06/03/2017 TIME: 9:45 a.m. REPORT OF CONSULTATION: The patient is seen in room 358, bed 1. He is a 32-year-old male who became acutely ill beginning May 28. He felt tired and achy. The following day, he developed a dry hacking cough. He had severe malaise. 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 He states on May 30, he went to work, but could not stay. He could barely stand or stay awake. His appetite has been very poor. He has had no vomiting. The patient has had some chills and shakes. He did not check his temperature at home. He has not had any rashes. The patient came to the Emergency Room yesterday with these complaints. He did have a chest x-ray done that suggested a density in the superior segment of the left lower lobe. Subsequently, a CAT scan of the chest was done. This showed a consolidated mass-like density that was subsolid in the superior segment of the left lower lobe. This measured 3.5 cm. There was also left lower lobe consolidation medially. There were some band-like atelectatic changes at the left lung base. Subsegmental bronchial debris was noted in the lower lobes. There were some mild ground-glass opacities in the right lower lobe with some tree-in-bud opacities at the right lung base. There was paraseptal emphysema at the lung apices, greater on the right. The patient states he feels a lot better today. He is starting to develop some appetite. He feels a little stronger. He was started on azithromycin, vancomycin, and Zosyn. The patient smokes approximately one-half pack per day. He has smoked for about 18 years, but he states he had quit off and on a few times for up to 6 months. His alcohol use is described as seldom. He states just a couple of alcoholic beverages in a year. He admits to marijuana use. In the past, he has done other drugs. He insists he has never injected drugs. He has had some prescription drug problems. He has used LSD a few years ago. From the perspective of risk for HIV, he has never had an HIV test done. He admits to having some unprotected sex in the past. He states he did have a tuberculin skin test done about 9 years ago that was negative. He does not know of any TB exposure. The patient has had no recent travel history. He does not have any pets at home. He has not been exposed to anyone who was sick as far as he knows. PAST SURGICAL HISTORY: Denied. PAST MEDICAL HISTORY: The patient states that he was hospitalized 2 other times with influenza. He believes 1 occasion was 2007. He states he was hospitalized once with flu at the [facility], which had been many years ago. SOCIAL HISTORY: As noted above. FAMILY HISTORY: Mother living, age 52, Crohn's disease and glaucoma. Father living, age 58, alive and well. Brother alive and well. 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 Previously, he had worked in a [employer]. At one point in time, he states he worked for [employer]. REVIEW OF SYSTEMS: Negative except for the above-mentioned complaints. PHYSICAL EXAMINATION: GENERAL: The patient is a 32-year-old male who appeared acutely ill. He was a bit disheveled probably because he has not been feeling well for a few days. VITAL SIGNS: Current temperature is 36.6. Temperature last night was 37.5. HEENT: Pupils were reactive to light. Nares were loaded with large amounts of discolored mucus. Mouth exam showed mild erythema, but no exudate. NECK: Palpation of the neck reveals no lymph nodes. CHEST: Normal expansion. The cardiac rate was 85 beats per minute. The rhythm was regular. Blood pressure was 127/78. No murmurs were heard. LUNGS: Auscultation of the lung pereira reveals rhonchi posteriorly bilaterally. It was greater on the right than the left. Respiratory rate was 18 breaths per minute. Saturation was 94% on room air. ABDOMEN: Soft and nontender. Bowel sounds were present. No masses were palpable. EXTREMITIES: Showed no cyanosis, clubbing or edema. He did have numerous tattoos. LABORATORY DATA: CBC showed a white count of 12.48 yesterday. This morning, it is 8.87. Hemoglobin was 16.9 yesterday and today 15.6. Platelets 222,000. Sed rate is greater than 90. Coags showed INR 1.2 and PTT 32.9. Stool for blood was negative. Electrolytes show sodium 132, potassium 3.2, chloride 103, bicarb 19. The low bicarbonate could suggest some acidosis. The BUN was 11 with a creatinine of 0.9. Lactic acid level was 0.87, which was low. Procalcitonin was 0.32, which is within the limits of normal. The patient's flu test is positive for influenza B. C. diff was negative. The patient's EKG showed a sinus rhythm with no significant abnormalities. IMPRESSION: 1. Acute influenza B. 2. A 3.5-cm mass-like consolidation in the left lower lobe. 3. Left lower lobe, medial basal consolidation. 4. Reactive mediastinal and hilar adenopathy. 5. Tree-in-bud opacities, right lower lobe. 6. Elevated sed rate. COMMENTS AND RECOMMENDATIONS: The patient seems to have an acute illness. It likely is infectious. The question of course is whether or not the mass-like lesion is infectious as well. It may be. Clinically, he states he feels much better this morning. I am not certain that the patient needs vancomycin. I do agree with Zosyn and azithromycin for now as well as the Tamiflu. It likely was too late for the Tamiflu to make a clinical significant difference, however, as his symptoms started 5-6 days ago. I discussed the case with Dr. Wolff. I do not think he needs EBUS at present. He may need a bronchoscopy ultimately for secretion removal and evaluation unless he is dramatically improved clinically. I am not planning on bronchoscopy for today and would wait and see how his clinical response is. The patient likely will ultimately need a followup CAT scan in about 6-8 weeks. A followup sed rate should be obtained. It is possible the patient has 2 separate problems. With such a high sed rate, one might need to consider things like Antonio's. He appears to have a lot of nasal or sinus disease that may be at least partially chronic. He does not have abnormal kidney function as of yet. We will order ANCA levels just for completeness. Thank you for asking me to assist in his care. PHANI
--- NOTE | 2017-06-03 12:13 | INFECT. DISEASE CONSULTATION ---
DATE OF CONSULTATION: 06/03/2017 HISTORY OF PRESENT ILLNESS: This is a 32-year-old gentleman who was admitted to the hospital with 3 days of worsening shortness of breath, cough, fevers and chills at home. His mother is present and helps provide his history. He did test positive for influenza B and was started on Tamiflu. He states he is feeling significantly better this morning. His fever has resolved. His shortness of breath has resolved. He denies any cough prior to admission or currently. He certainly had no hemoptysis. He had a mild leukocytosis in the ER, which is improved. He denies any nausea, vomiting or diarrhea on my exam. Multiple stool cultures were ordered and are pending. A HIV test is ordered and pending. A Legionella antigen is ordered and pending. A QuantiFERON has ordered and pending. He was also started on vancomycin, Zosyn and azithromycin empirically. He has been afebrile since admission. A blood culture and sputum culture are pending. His sed rate was elevated. Procalcitonin was negative. A chest x-ray showed a 3-cm left lower lobe mass and a CAT scan did confirm this with additional findings of left lower lobe consolidation. His mother states that she does have sarcoidosis. He denies any pleuritic chest pain. He does have pulmonary and CT surgery consults pending. He states he was followed by CT surgery this morning and it was felt that there was no need for biopsy. He was previously n.p.o., but then was opted to eat breakfast, which he tolerated well. He denies any nausea, vomiting or diarrhea. With regards to his social history, he has lived in the [place] his entire life. He has had minimal travel to other states locally, but has never traveled abroad. He has never worked in a fci or healthcare setting. FAMILY HISTORY: Unremarkable for any family members with tuberculosis. 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 He has had no weight loss. With the exception of his fevers over the past few days, there have been no fevers or night sweats at home previously. Again, there is no hemoptysis. PAST MEDICAL HISTORY: Unremarkable. PAST SURGICAL HISTORY: Unremarkable. SOCIAL HISTORY: Significant for daily tobacco use. He denies any alcohol or drug use. His remaining social history is as above. ALLERGIES: He has no known drug allergies. CURRENT MEDICATIONS: Include azithromycin, famotidine, vancomycin, Zosyn, Tamiflu, Lovenox, Zofran, MiraLax, Floranex, Tylenol, Maalox, milk of magnesia, and Ambien. PHYSICAL EXAMINATION: VITAL SIGNS: He is currently afebrile, pulse 85, respiratory rate 17, blood pressure 127/78, and oxygen saturation is 94% on room air. GENERAL: He is awake, alert and oriented x3. He is in no acute distress. HEENT: Mucous membranes are moist. Extraocular muscles are intact. HEART: Regular. LUNGS: Clear. There is no wheezing or rhonchi. ABDOMEN: Soft, nontender, and nondistended. There is no edema. SKIN: Without rash. LABORATORY STUDIES: CBC today reveals a white blood cell count of 8.8, hemoglobin is 15.6, and platelets are 200. Sed rate was greater than 90 in the ER. Chemistry panel today reveals a sodium of 132, potassium 3.2, chloride 103, bicarbonate 19, BUN 11, creatinine 0.9, and glucose 95. LFTs are normal. Procalcitonin is negative. A lactic acid is 0.9. Stool studies are pending. Urine is pending. Histoplasmosis antigen is pending. Legionella antigen is pending. Flu swab is positive. A HIV test was negative in the ER. Blood cultures are pending. Stool culture is pending, but no WBCs are seen. A C. diff was negative. Sputum culture as well as AFB and fungal are negative. A CAT scan of the chest again shows a 3.5 subsolid mass in the left lower lobe concerning for neoplastic process, but would be unlikely at this age. Infectious etiologies could be responsible. There is extensive consolidation in the lower lobes and reactive lymphadenopathy. Echocardiogram was done this morning, which is negative for vegetation. ASSESSMENT AND PLAN: Influenza with potential secondary pneumonia. Certainly, he can remain on empiric antibiotics pending blood and sputum cultures if his AFB smear is negative. Airborne precautions can be discontinued as I do not elicit any tuberculosis risk factors on questioning or by clinical symptoms. He does have a pulmonary and CT surgery evaluation pending. Certainly, if he is treated with antimicrobials and remains with mass, a biopsy would be needed, especially with his close family history of sarcoidosis and I will defer to CT surgery regarding whether or not biopsy will be done at this time versus in the future if it does not clear with treatment of underlying infection.
--- NOTE | 2017-06-03 13:48 | SURGICAL CONSULTATION ---
DATE OF CONSULTATION: 06/03/2017 REASON FOR CONSULTATION: Left lung masses with mediastinal adenopathy. HISTORY OF PRESENT ILLNESS: Judson Disla is a 32-year-old who has a history of cigarette smoking for about 18 years but states he has probably averaged less than half a pack a day, who developed 3 days of worsening shortness of breath with a productive cough, fevers and chills. He has influenza B, was started on Tamiflu. Today, he states he feels "100% better." He has defervesced and no longer has a fever. Clinically, he is improved. I was asked to see him when a CT scan showed ground-glass opacity in his left mid lung field but also a fairly dense infiltration of the left lower lobe medially. He has had no hemoptysis. He really did not have a very high white count when he came in. His maximal temperature has been 37.5. His white count was 12,480 when he came in, that is down to normal today. His heart rate is also in the 80s. I am asked to see the patient as he had some mediastinal, particularly subcarinal adenopathy and has these abnormal findings. Discussed this case in detail with Dr. Thomas from pulmonary. PAST MEDICAL HISTORY: 1. History of cigarette smoking. 2. History of recreational drug use (no intravenous needles). 3. History of light cigarette smoking. PAST SURGICAL HISTORY: None. SOCIAL HISTORY: The patient does smoke about half a pack of cigarettes a day. 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 MEDICATIONS (AT HOME): No home meds. ALLERGIES: No known drug allergies. FAMILY MEDICAL HISTORY: The patient's mother has just been diagnosed with Crohn's disease, she is 52. Father is 58 and healthy. Mother has also been recently diagnosed as having glaucoma. He has 1 brother who has no medical problems. He has no children. REVIEW OF SYSTEMS: The patient really has not lost weight. He states that he has had a tuberculin TB test done in years past. He states his weight has been relatively stable. He states he has been anorexic for a few days but now his appetite has come back. He was started on Zosyn, vancomycin and azithromycin. He also states that while he has been smoking for 18 years, he has quit for a year or two at a time twice. He does use some marijuana. He denies any palpitations. He has had no chest pain per se. He denies any visual or auditory symptoms. He has had no wound breakdown. He has no peripheral edema. He has had no complaints but does have some diarrhea. He was fatigued. He has had no neurologic events. He has respiratory symptoms as noted in the history of present illness. PHYSICAL EXAMINATION: GENERAL: This is a well-developed, well-nourished male who is 32 years of age. He stands 6 feet tall and weighs 207 pounds. He is awake, alert and oriented. HEENT: Extraocular movements are intact. His pupils are equally round and reactive. His sclerae are anicteric. He has no nasolabial flattening. His tongue is midline. He has no oral mucosal lesions. His teeth are in good repair. NECK: Supple. He has no supraclavicular or cervical lymphadenopathy or neck vein distention. He has no axillary adenopathy. LUNGS: Upon auscultation of his lungs, he has good breath sounds actually bilaterally. I detect no wheezing today. He has a few rhonchi in the left medial lung field posteriorly. HEART: He has a regular rate and rhythm of his heart without a significant rub. EXTREMITIES: He has no inguinal adenopathy. He has no peripheral edema. He has excellent peripheral pulses. He has no joint effusions. NEUROLOGIC: He is awake, alert and oriented with no focal deficits. ASSESSMENT AND PLAN: Infiltrative pattern left mid lung field and left lower lobe consolidation medially. I agree with Dr. Thomas that we are probably dealing with an acute infectious process. He appears to be defervescing. I would give him about a week and repeat his CT scan as I feel sure it will improve. If not, we will discuss possible diagnostic endobronchial ultrasound biopsy or an electromagnetic navigational bronchoscopy. Thank you very much.
[2017-06-03 15:22] VITALS: BP 114/67; PULSE 76; TEMP 36.7; O2SAT 96
[2017-06-03] MEDS: ENOXAPARIN 40 MG/0.4 ML SYR SQ SCH (20:35)
[2017-06-03 22:55] VITALS: BP 116/72; PULSE 68; TEMP 37.1; O2SAT 95
[2017-06-04] MEDS: ONDANSETRON 4MG OD TAB SL SCH ×3 (02:00→12:52)
[2017-06-04] MEDS: VANCOMYCIN IV 1,750 MG in SODIUM CHLORIDE 0.9% 500ML 500 ML IV SCH (03:51)
[2017-06-04 06:58] VITALS: BP 102/62; PULSE 75; TEMP 36.8; O2SAT 91
[2017-06-04 08:20] LABS: CREATININE 0.79 mg/dl (0.60-1.40)
[2017-06-04] MEDS: OSELTAMIVIR PHOSPHATE 75 MG CAP PO SCH (08:47)
[2017-06-04] MEDS: AZITHROMYCIN 250 MG TAB PO SCH (08:47)
[2017-06-04] MEDS: LACTOBACILLUS ACIDOPHILUS (FLORANEX) TAB PO SCH ×2 (08:47→12:52)
[2017-06-04] MEDS: PIPERACILL/TAZOBAC IV 3.375 GM in DEXTROSE 5% 100ML 100 ML IV SCH (08:47)
[2017-06-04] MEDS ORDERED: FAMOTIDINE 20 MG TAB PO SCH (09:00)
--- NOTE | 2017-06-04 09:11 | SURGERY PROGRESS NOTE ---
DATE: 06/04/2017 Mr. Disla was seen today. He states he is now coughing up a thick sputum. He states it started last night. He has been coughing "much better." He slept better. He feels better. He has been afebrile. His heart rate has been in the 60s and 70s on room air with anywhere from 91-96% saturations. He still has marked rhonchi upon auscultation of his lungs. I would continue the IV via parenteral antibiotics for the time being. He definitely has defervesced clinically. At this point, I think I would leave that up to infectious disease and pulmonary as well as primary service to determine when he can be transitioned to p.o. antibiotics and discharged home. I would like to see him back in a week or so and I would like to repeat a low dose CT scan at that time.
[2017-06-04] MEDS: NSS + 20MEQ KCL 1000ML 1,000 ML IV SCH (11:45)
--- NOTE | 2017-06-04 11:53 | Progress Note ---
Subjective Date of Service: Jun 04, 2017. Subjective Pt evaluation today including: conversation w/ patient, conversation w/ family , physical exam, chart review, lab review pt seen in followup, mom at bedside. pt feeling much better. no f/c. no abd pain , no n/v/d. some cough this am, sputum with nml elena, blood cultures all negative. flu + afb smear and fungal smear negative. remains in isolation. on multiple abx. stool studies pending, c diff negative. overall feeling much better, asking to go home. wbc nml. all remaining ros reviewed and are negative. Problem List Medical Problems: (1) Hypokalemia Status: Acute (2) Influenza B Status: Acute (3) Pneumonia Status: Acute Objective Vital Signs Date Time Temp Pulse Resp B/P (MAP) Pulse Ox O2 Delivery O2 Flow Rate FiO2 06/04/17 08:40 Room Air 06/04/17 06:58 36.8 75 16 102/62 (75) 91 Room Air 06/03/17 23:50 Room Air 06/03/17 22:55 37.1 68 16 116/72 (87) 95 Room Air 06/03/17 16:00 Room Air 06/03/17 15:22 36.7 76 18 114/67 (83) 96 Room Air Physical Exam General Appearance: WD/WN, no apparent distress Eyes: normal inspection, EOMI Neck: supple Respiratory/Chest: lungs clear, normal breath sounds, no respiratory distress Cardiovascular: regular rate, rhythm, no edema Abdomen: non tender, soft Extremities: non-tender, no pedal edema Neurologic/Psychiatric: alert, oriented x 3 Skin: normal color Laboratory Results Item Value Date Time Gram Stain - Final Resulted 06/03/17 0550 Sputum Expectorated Sputum Acid Fast Stain - Final Resulted 06/03/17 0550 Sputum Expectorated Sputum Fungal Smear - Final Resulted 06/03/17 0550 Sputum Expectorated Sputum Blood Culture - Preliminary Resulted 06/02/172021 Blood NO GROWTH TO DATE. Last 24 Hours Test 06/03/17 12:28 06/04/17 07:07 Creatinine 0.79 mg/dl Est Creatinine Clear Calc Drug Dose 156.6 ml/min Estimated GFR () 135.8 Estimated GFR (Non- 117.2 Assessment and Plan (1) Influenza B Assessment & Plan: continue tamiflu x 5 days total, maintain droplet isolation while in hospital. can stop airborne as afb smear negative and no clinical history/suspicion for TB. will change to po azithor to complete 5 days, stop other abx for ct surgery eval as outpt to address mass, suspect this could all be infectious process and acute, however, mom has sarcoidosis and ESR >90, elevated more than would expect for acute resp illness with flu. may need eventual biopsy, etc. He is agreeable to continued outpt workup for this. ok for d/c from ID standpoint when otherwise stable. (2) CAP (community acquired pneumonia) (3) Lung mass
--- NOTE | 2017-06-04 12:18 | Consultant Recommendations ---
Department Manager Recommendations Date of Service Jun 04, 2017. Department Manager Recommendations He has a followup appointment scheduled in the outpatient pulmonary clinic on at 10:30 am with Wellington Cortez PA-C Phone number for the office is [phone]. Address is : [address] [place] [address] [address]
[2017-06-04] MEDS ORDERED: TMF75 PO (12:41)
[2017-06-04] MEDS ORDERED: AZIT500T PO (12:41)
--- NOTE | 2017-06-04 12:44 | PULMONARY PROGRESS NOTE ---
DATE: 06/04/2017 PROBLEM LIST: Includes: 1. Acute influenza B. 2. A 3.5-cm mass-like consolidation in the left lower lobe. 3. Reactive mediastinal and hilar adenopathy. 4. Tree-in-bud opacities, right lower lobe. 5. Elevated sed rate. SUBJECTIVE: The patient reports feeling much better today, feels that he is pretty close to being back to his baseline. He states that early this morning he started coughing quite a bit and has been coughing up a thick, slightly discolored mucus. There has not been any blood in the mucus. He feels that his breathing is improved. He denies any shortness of breath. Denies any chest congestion or tightness. He states that he has been up walking around, was able to do his normal ADLs without any difficulty or without any shortness of breath. He has not noted any wheezing. He has not noted any chest heaviness or tightness. He denies any chest pain, no palpitations. He denies any pleuritic chest pain. He reports that he has not had a fever for over 24 hours. He basically reports that he is feeling pretty close to being back to his baseline other than being a little bit tired. He denies any GI difficulties. No nausea or vomiting, no indigestion or heartburn, no difficulty with his bowels. No difficulty voiding, no swelling in his extremities. In reviewing the chart, the patient has already been seen by Dr. Wolff today who feels that the patient is not need of any intervention while in the hospital and they are going to see him back in 1-2 weeks for evaluation and have a repeat low-dose CT done at that time. He is also seen by infectious disease who feels that he is okay for discharge from their standpoint. OBJECTIVE: GENERAL: The patient is a 32-year-old male lying in bed, alert, oriented. Mood is good. Affect is good. No respiratory distress. VITAL SIGNS: Temp 36.8, pulse 75, respirations 16, blood pressure is 102/62, pulse ox is ranging from 91%-96% on room air. HEENT: Normocephalic, atraumatic. Pupils equal, round and reactive to light and accommodation. Extraocular movements are intact. Lasara moist gingival and buccal mucosa. NECK: Supple. There is no mass, no adenopathy, no bruit. CHEST: The patient has some coarse wheezing in the bases bilaterally. Upper air pereira are relatively clear. This is auscultated mostly in the posterior aspect. CARDIOVASCULAR: Regular rate and rhythm. No murmurs, gallops or rubs. ABDOMEN: Bowel sounds are present. Abdomen soft, nontender. No guarding, rigidity or organomegaly. EXTREMITIES: No erythema or edema. No cyanosis or clubbing noted. LABORATORY DATA: Immunologic data is pending. Urine legionella is not detected. No new imaging. IMPRESSION: 1. The patient is a 32-year-old male who presented with relatively significant illness. He was tested positive for influenza B. Per infectious disease, he is to receive 5 days of Tamiflu. 2. The patient does have a mass-like consolidation in the left lower lobe. Question is this area secondary to infectious process. In reviewing surgery's note, they are going to see him back in a week. Discussion was had with Dr. Thomas and there is question of whether or not CT is going to show much change at that time. At this point, the patient does seem to be showing improvement overall, does have a noted elevated sed rate, and there is a family history of sarcoid. This will need to be followed up as an outpatient. Tobacco use. The patient states that he has done smoking and has not had a cigarette in 10 days. At this point, we would recommend that we follow up with the patient as an outpatient. He will be seen on June 27 at 10:[address] Bah has made recommendation to continue Tamiflu for 5 days as stated before and to complete a course of azithromycin. The patient does appear stable from a pulmonary standpoint. He is not requiring any supplemental oxygen. He is afebrile. His saturations are good. At this point, the patient does seem okay from a pulmonary perspective to be discharged to home. The patient's mother was in the room and states that he is going to be staying with her for the immediate future, so there will be someone monitoring him.
--- NOTE | 2017-06-04 12:46 | Discharge Instructions ---
Discharge Instructions Date of Service Jun 04, 2017. Admission Reason for Admission: Lung Mass Discharge Discharge Diagnosis / Problem: Influenza B, lung mass Discharge Goals Goal(s): Decrease discomfort, Improve function, Increase independence, Improve disease control Activity Recommendations Activity Limitations: per Instructions/Follow-up section Lifting Limitations: no more than 25 pounds, gradually increase as tolerated Exercise/Sports Limitations: rest today, gradually increase as tolerated May Resume Sexual Activity: when tolerated Shower/Bathe: no limitations Driving or Machine Use: no limitations . Instructions / Follow-Up Instructions / Follow-Up You were admitted to [facility] with shortness of breath, hypoxia, fever, and diagnosed with influenza B along with lung mass in the Left lower lobe. During your stay here you were treated with intravenous antibiotics, supportive care with nebulizer treatments, oxygen,and mucinex. You were seen by thoracic surgery and pulmonology for lung mass workup- at this time it is thought to be infectious, but will require repeat imaging as an outpatient to show resolvement. Follow up CT of the chest to be completed as an outpatient in next several weeks. Imaging studies which were completed include CT chest, and were abnormal. Medications: Continue taking your medications as prescribed. Continue azithromycin x 3 more days starting on 06/07. Continue tamiflu x 3 more days, take the next dose tonight. Finish on 06/07 Appointments: Follow up with PCP within 1 week. Follow up with pulmonology within 1-[address] within the next several weeks, you will be contacted to set up an appointment time. Current Hospital Diet Patient's current hospital diet: Regular Diet Discharge Diet Recommended Diet: Regular Diet Pending Studies Studies pending at discharge: yes List of pending studies: AFB Fungal smear ANCA Laboratory Results Hemoglobin A1c Test 06/03/17 06:30 Range/Units Estimated Average Glucose 120 mg/dl Hemoglobin A1c 5.8 H 4.5-5.6 % Medical Emergencies . Who to Call and When: Medical Emergencies: If at any time you feel your situation is an emergency, please call 911 immediately. . Non-Emergent Contact Non-Emergency issues call your: Primary Care Provider, Hand Stoner Call Non-Emergent contact if: you have a fever, temperature is above 100.5, your pain is not controlled, your pain is worsening, your pain is unusual for you, your pain is concerning you, you have any medication questions other concerns with your health. Call 911 or go directly to the Emergency Department if you experience any of the following: Chest pain, chest tightness, shortness of breath, abdominal pain , lightheadedness, dizziness, gastrointestinal bleeding, or have any other concerns regarding your health. . Past History Medical & Surgical History: (1) Influenza B (2) Lung mass . "Provider Documentation" section prepared by Kriss Galindo. . Quality Assurance Test Program Manager Recommendations Quality Assurance Test Program Manager Recommendations: He has a followup appointment scheduled in the outpatient pulmonary clinic on at 10:30 am with Wellington Cortez PA-C Phone number for the office is [phone]. Address is : [address] [place] [address] [address] [place] Drug Monitoring Program Search Results: no issues identified
[2017-06-04 12:53] VITALS: BP 102/62; PULSE 75; TEMP 36.8; O2SAT 91
[2017-06-04] MEDS ORDERED: VANCOMYCIN TROUGH ONE (13:30)
--- NOTE | 2017-06-04 15:38 | Discharge Summary ---
Discharge Summary Date of Service Jun 04, 2017. Discharge Summary Admission Date: Jun 02, 2017 at 17:47 Discharge Date: Jun 04, 2017 Discharge Disposition: Home Principal Diagnosis: Influenza B, lung mass Problems/Secondary Diagnoses: Medical Problems: (1) CAP (community acquired pneumonia) (2) Influenza B (3) Lung mass Procedures: CHEST 2 VIEWS ROUTINE 06/02/16 IMPRESSION: 1. 3 cm mass in the superior segment of the left lower lobe. Other evaluation with contrast-enhanced chest CT recommended as this is suspicious and malignancy cannot be excluded. 2. Left basilar atelectasis or scarring with small left pleural effusion. (CHEST FOR PE) ANGIO WITH 06/02/17 IMPRESSION: 1. 3.5 cm subsolid mass superior segment of the left lower lobe. This morphology is most concerning for a neoplastic process though this would be unlikely in a patient of this age. Alternatively, a potential infectious etiology is possible, especially given the additional findings. This should be followed to complete resolution following treatment for pneumonia. 2. Extensive consolidation in the bilateral lower lobes with tree-in-bud and nodular consolidation most concerning for an atypical infectious etiology or aspiration. 3. Bronchial wall thickening with lower lobe predominant subsegmental bronchial debris. 4. Reactive mediastinal and bilateral hilar lymphadenopathy. Consultations: Pulmonology Infectious disease Thoracic medicine Medication Reconciliation New Medications: Azithromycin (Zithromax) 500 Mg Tab 1 TAB PO DAILY for 3 Days, #3 TAB Oseltamivir Phosphate (Tamiflu) 75 Mg Cap 75 MG PO BID for 3 Days, #7 CAP Discharge Exam The patient was seen and examined this morning. Pt reports doing much better today compared today. He reports cough is starting to produce much more mucous at this time, which is white/clear. He denies any blood in mucous. No fever, chills or sweats overnight. Pt denies sob. ROS: Constitutional: No fever, sweats or chills Eyes: No diplopia, no worsening or blurred vision ENT: normal hearing, no trouble swallowing Respiratory: See HPI Cardiovascular: No chest pain, tightness or palpitations Abdomen: No pain, nausea, vomiting, diarrhea or constipation Musculoskeletal: No joint pain, calf pain, swelling Neurologic: No weakness, numbness/tingling, or balance problems Psychiatric: No anxiety or depression Skin: No rash or itch PE: General: awake, alert, no apparent distress Head: Normocephalic, atraumatic ENT: PERRL, EOMI, no pharyngeal exudate, mucous membranes moist Chest: On room air, good aeration throughout, no wheeze or rales, no rhonchi. Cardiac: Regular rate and rhythm, no murmur, no JVD, normal peripheral pulses, good capillary refill Abdominal: NABS x 4 quadrants, soft, nontender to palpation, no rebound, guarding or tenderness Extremities: Normal inspection, no peripheral edema or erythema, calfs nontender to palpation Psych: Normal mood and affect Neuro: AAO x 3, strength intact bilaterally and related 5/5, no motor deficits, speech is clear, no peripheral sensory deficits Hospital Course This is a 32-year-old male with PMH chronic tobacco use, marijuana use found to have Influenza B, with subsequent LLL lung mass measuring ~3.5 cm with hilar lymphadenopathy. Influenza B virus upper respiratory tract infection 3.5 cm lung mass with multiple lung nodules Tobacco abuse/ marijuana use Concern for pathologic malignancy - CT reviewed per chart - O2 protocol, bronchodilators, nebs for supportive care along with tamiflu (sx started 5 days ago, unlikely that that would truely decrease sx improvement at this point) - azithromycin, vanc and zosyn started on 06/02. -Downgraded antibiotics to azithromycin alone, continue for 3 more days to complete a 5 day course. - Follow Blood culture/sputum culture -negative to date. - Although tuberculosis is low in the last but as a precaution will do AFB and sputum and blood cultures-follow AFB, ANCA, fungal stain as an outpatient - Consult carpet or rug layer helper- Dr. Thomas:. No need at this time for EBUS - considered bronchoscopy for secretion removal however the patient is significantly clinically improved today compared to yesterday. - Consult cardiothoracic surgeon Dr. Wolff for possible biopsy - agrees with holding off on bx for now -follow-up scheduled with him within 1-2 weeks, repeat CT scan to look occur as an outpatient within the next several weeks. - Infectious disease on board - await AFB. Appreciate recommendations - Urine legionella antigen negative - Start patient on lactobacillus to prevent C. difficile - Follow HIV results - 2D echo on 06/03 was normal. - Follow CMP: with focus on total protein, if stays elevated after dehydration it can be concerning for HIV or other pathologic malignancy -however this improved prior to discharge. - Advised cessation of smoking as well as cessation of marijuana. Patient is agreeable to smoking cessation. He will be staying with his mother for a short timeframe. -PCP established prior to discharge with member of our team at [facility] per nurse navigator. Elevated total protein level likely dehydration -resolved Mild hypokalemia- replaced, follow am labs-resolved DVT ppx: heparin subq CODE STATUS: FULL CODE Dispostion: From home, lives with brother. Discharge to home today patient will be staying with his mother through the weekend. Total Time Spent: Greater than 30 minutes This includes examination of the patient, discharge planning, medication reconciliation, and communication with other providers. Discharge Instructions Please refer to the electronic Patient Visit Report (Discharge Instructions) for additional information. Follow-Up Follow up with your Primary Care Provider within 1 week. Follow-up with pulmonology within 1-2 weeks. Follow-up CT scheduled within the next few weeks per pulmonology recommendations
[2017-06-05] MEDS ORDERED: FAMOTIDINE 20 MG TAB PO SCH (09:00)
[2017-06-05 15:29] LABS: QUANTIF MITOGEN-NIL 1.53 IU/ML; QUANTIFERON NEGATIVE (NEGATIVE); QUANTIFERON NIL 0.08 IU/ML
== END 2017-06-04 14:00 | disposition home or self-care (01) | DRG 195 ==
LOC: C.EDB 13:13 → UNDOADMIN 17:47 → C.MSW 17:47 → ENRESERV 18:22
PROVIDERS: ADMIT Internal Medicine; ATTEND Internal Medicine Sports Medicine
DX: J10.00 Influenza due to other identified influenza virus with unspecified type of pneumonia (principal); R91.8 Other nonspecific abnormal finding of lung field; R59.0 Localized enlarged lymph nodes; E87.6 Hypokalemia; R19.7 Diarrhea, unspecified; E86.0 Dehydration; J06.9 Acute upper respiratory infection, unspecified; F17.210 Nicotine dependence, cigarettes, uncomplicated; F12.90 Cannabis use, unspecified, uncomplicated; Z51.81 Encounter for therapeutic drug level monitoring; Z83.2 Family history of diseases of the blood and blood-forming organs and certain disorders involving the immune mechanism; Z83.79 Family history of other diseases of the digestive system; Z83.511 Family history of glaucoma

== ENCOUNTER → 2017-06-27 | Outpatient (CLI) | payer OTHER ==
[~2017-06-27] MED LIST: AZIT500T PO; TMF75 PO
--- NOTE | 2017-06-27 09:55 | DIAGNOSTIC IMAGING REPORT ---
CHEST 2 VIEWS ROUTINE CLINICAL HISTORY: R93.8 abnormal chest x-ray COMPARISON STUDY: 06/02/2017 FINDINGS: The lungs are now considered clear. The density in the left base and left lower lobe. 2. Resolved. Diaphragms are smooth. No significant cardiac enlargement. IMPRESSION: Negative chest. Lungs are now considered clear. The above report was generated using voice recognition software. It may contain grammatical, syntax or spelling errors. Electronically signed by: Paul Crespo M.D. 06/27/2017 9:53 AM Dictated Date/Time: 06/27/2017 9:51 AM
== END | disposition home or self-care (01) ==
LOC: C.LAB1850 09:42
PROVIDERS: ATTEND Internal Medicine Pulmonary Disease
DX: R93.8 Abnormal findings on diagnostic imaging of other specified body structures (principal)